=== PATIENT | female | born 1995 | race Two or more races ===

== ENCOUNTER 2019-10-03 15:01 | Emergency (ER) | payer SELFPAY ==
[~2019-10-03] VITALS: Ht 157.5 cm; Wt 82.6 kg
[2019-10-03 19:00] VITALS: BP 121/69
== END 2019-10-03 19:01 | disposition home or self-care (01) ==
LOC: ER 15:01
DX: J32.9 Chronic sinusitis, unspecified (principal)
CPT/HCPCS: 70450

== ENCOUNTER 2024-09-03 08:56 | Emergency (ER) | payer BC, MEDICAID ==
[~2024-09-03] VITALS: Ht 165.1 cm; Wt 95.7 kg
[2024-09-03 09:21] VITALS: BP 129/86; PULSE 77; RESP 17; TEMP 98.9; O2SAT 96
--- NOTE | 2024-09-03 10:23 | ED.PDOC ---
Musculoskeletal HPI Comments 29 year old presents for nail avulsion to the right thumb. Occurred 3 days ago while she was putting a shirt on No pain at this time. Denies numbness/tingling Chief Complaint: Upper Extremity Time Seen by MD: 09:12 Primary Care Provider: none Reviewed Notes: Nurses Notes, Medications, Allergies Allergies: Coded Allergies: NO KNOWN ALLERGIES (Unverified , 11/17/14) Information Source: Patient Mode of Arrival: Ambulatory Past Medical History PAST MEDICAL HISTORY: Denies Surgical History: Denies all surgeries COUNTY AUDITOR History: No Pertinent COUNTY AUDITOR History Social History Smoker: Non-Smoker Alcohol: Denies ETOH Use Drugs: Denies Drug Use Lives In: Home All Other Systems: Reviewed and Negative (per hpi) Physical Exam General Appearance: No Apparent Distress, Normal HEENT: Normal ENT Inspection, Pharynx Normal, TMs Normal Neck: Full Range of Motion, Non-Tender, Normal, Normal Inspection Respiratory: Chest Non-Tender, Lungs Clear, No Accessory Muscle Use, No Respiratory Distress, Normal Breath Sounds Cardiovascular: No Edema, No JVD, No Murmur, No Gallop, Normal Peripheral Pulses, Regular Rate/Rhythm Breast Exam: Deferred Gastrointestinal: No Organomegaly, Non Tender, No Pulsatile Mass, Normal Bowel Sounds, Soft Genitalia: Deferred Pelvic: Deferred Rectal: Deferred Extremities: No calf tenderness, Normal capillary refill, Normal inspection, Normal range of motion, Non-tender, No pedal edema Musculoskeletal : Apperance: Normal Neurologic: Alert, proof coins inspector II-XII nml as Tested, No Motor Deficits, Normal Affect, Normal Mood, No Sensory Deficits Cerebellar Function: Normal Reflexes: Normal Skin: Dry, Normal Color, Warm Lymphatic: No Adenopathy Was a procedure done? Was a procedure done?: Yes Sedation Sedation?: No Laceration Repair : Location thumb Length 1 Laceration Repair: Dermabond Informed consent obtained: Yes Risks, benefits, and alternati: Yes Images 1 - nail avusion. mild surround erythema to the nail bed. full rom. no pain to touch Differential Diagnosis EXT Differential Diagnosis: Sprain, Other X-Ray, Labs, Meds, VS Vital Signs Date Time Temp Pulse Resp B/P (MAP) Pulse Ox O2 Delivery O2 Flow Rate FiO2 09/03/24 09:21 98.9 77 17 129/86 (100) 96 98.9 09/03/24 09:21 77 17 96 Room Air 09/03/24 09:09 98.4 77 17 129/86 (100) 96 X-Ray, Labs, Meds, VS Comment Glued with Dermabond tolerated well. no complications wound check 24-48 hours. Time of 1ST Reevaluation: 10:23 Reevaluation 1ST: Improved Patient Education/Counseling: Diagnosis, Treatment Family Education/Counseling: Diagnosis, Treatment Departure 1 Departure Time of Disposition: 10:43 Impression: Primary Impression: Avulsion of nail Disposition: 01 HOME / SELF CARE / HOMELESS Condition: Stable e-Prescriptions Cephalexin Monohydrate (Cephalexin) 500 Mg Cap 1 CAP PO QID for 7 Days, #28 CAP 0 Refills Prov: ADY RAMOS NP 09/03/24 Discharged With: Self Critical Care Note Critical Care Time?: No Stability Stability form required: No Heart Score Heart Score: Heart Score Response (Comments) Value History N/A 0 EKG N/A 0 Age N/A 0 Risk Factors N/A 0 Troponin N/A 0 Total 0 ADY RAMOS NP Sep 03, 2024 10:23
[2024-09-03] MEDS ORDERED: CEPH500C PO (10:44)
== END 2024-09-03 11:00 | disposition home or self-care (01) ==
LOC: ER 08:56
DX: S61.101A Unspecified open wound of right thumb with damage to nail, initial encounter (principal); X58.XXXA Exposure to other specified factors, initial encounter; Y93.89 Activity, other specified; Y92.89 Other specified places as the place of occurrence of the external cause; Y99.8 Other external cause status
CPT/HCPCS: 11730; 12001

== ENCOUNTER → 2024-12-21 | Outpatient (CLI) | payer MEDICAID ==
[~2024-12-21] MED LIST: CEPH500C PO
[2024-12-21 10:19] LABS: Basophils # (auto) 0 10 ^3/uL (0-0.2); Basophils % (auto) 0.4 % (0.0-2.0); Eosinophils # (auto) 0.1 10 ^3/uL (0-0.8); Eosinophils % (auto) 0.7 % (0.0-7.0); Hematocrit 31.6 % (36.0-46.0); Hemoglobin 10.7 g/dL (12.2-16.2); Lymphocytes # (auto) 2.3 10 ^3/uL (0.4-5.4); Lymphocytes % (auto) 21.8 % (10.0-50.0); Mean Corpuscular Hemoglobin 29.3 pg (28.0-32.0); Mean Corpuscular Hgb Conc. 33.8 g/dL (32.0-36.0); Mean Corpuscular Volume 86.7 fL (80.0-100.0); Monocytes # (auto) 0.5 10 ^3/uL (0-1.3); Monocytes % (auto) 4.5 % (0.0-12.0); Neutrophils # (auto) 7.5 10 ^3/uL (1.6-8.6); Neutrophils % (auto) 72.6 % (37.0-80.0); Platelet Count (auto) 228 10^3/uL (140-450); Red Blood Cells 3.65 10^6/uL (4.0-5.20); Red Cell Distribution Width 15.2 % (11.8-14.3); White Blood Cell 10.4 10^3/uL (4.4-10.8)
== END | disposition home or self-care (01) ==
LOC: LAB 09:36
PROVIDERS: ATTEND Obstetrics & Gynecology
DX: O03.9 Complete or unspecified spontaneous abortion without complication (principal)
CPT/HCPCS: 36415; 84702; 85025

== ENCOUNTER 2024-12-22 17:35 | Emergency (ER) | payer MEDICAID ==
[~2024-12-22] VITALS: Ht 154.9 cm; Wt 92.2 kg
--- NOTE | 2024-12-22 18:33 | ED.PDOC ---
MOVING VAN DRIVER HPI Comments 29-year-old female who came to ER for issues. Patient is a , approximately 7 weeks . States she was seen by her OB yesterday, diagnosed that she was having a miscarriage, ultrasound was done revealing a yolk sac, and patient was given misoprostol in order for her to pass out the remains. Presenting with minimal abdominal pain and bleeding. Patient coming in wanting to see if there is any progression in her miscarriage. Chief Complaint: Time Seen by MD: 18:32 Reviewed Notes: Nurses Notes Allergies: Coded Allergies: NO KNOWN ALLERGIES (Unverified , 11/17/14) Home Meds Active Scripts Cephalexin Monohydrate (Cephalexin) 500 Mg Cap, 1 CAP PO QID for 7 Days, #28 CAP 0 Refills Prov:ADY RAMOS EKG MANAGER 09/03/24 Information Source: Patient Mode of Arrival: Ambulatory Timing: Hours Severity: Mild Onset Of Mass/Bleeding: Other (miscarriage) Sexual Activity: History of: Current Associated Signs and Symptoms: Vaginal Bleeding, Abdominal Pain Past Medical History PAST MEDICAL HISTORY: Denies Surgical History: Denies all surgeries CAREER EDUCATION TEACHER History: No Pertinent CAREER EDUCATION TEACHER History 3 Para 2 Social History Smoker: Non-Smoker Alcohol: Denies ETOH Use Drugs: Denies Drug Use Lives In: Home Constitutional: denies: chills, diaphoresis, fatigue, fever, malaise, sweats, weakness, others EENTM: denies: blurred vision, double vision, ear bleeding, ear discharge, ear drainage, ear pain, ear ringing, eye pain, eye redness, hearing loss, mouth pain, mouth swelling, nasal discharge, nose bleeding, nose congestion, nose pain, photophobia, tearing, throat pain, throat swelling, voice changes, others Respiratory: denies: cough, hemoptysis, orthopnea, SOB at rest, shortness of breath, SOB with excertion, stridor, wheezing, others Cardiovascular: denies: chest pain, dizzy spells, diaphoresis, Dyspnea on exertion, edema, irregular heart beat, left arm pain, lightheadedness, palpitations, PND, syncope, others Gastrointestinal: denies: abdomen distended, abdominal pain, blood streaked bowels, constipated, diarrhea, dysphagia, difficulty swallowing, hematemesis, melena, nausea, poor appetite, poor fluid intake, rectal bleeding, rectal pain, vomiting, others Genitourinary: reports: abnormal vagina bleeding; denies: burning, dyspareunia, dysuria, flank pain, frequency, hematuria, incontinence, pain, , vagina discharge, urgency, others Neurological: denies: dizziness, fainting, headache, left sided numbness, left sided weakness, numbness, paresthesia, pre-existing deficit, right sided numbness, right sided weakness, seizure, speech problems, tingling, tremors, weakness, others Musculoskeletal: denies: back pain, gout, joint pain, joint swelling, muscle pain, muscle stiffness, neck pain, others Integumetry: denies: bruises, change in color, change in hair/nails, dryness, laceration, lesions, lumps, rash, wounds, others Allergic/Immunocompromised: denies: Difficulty Healing, Frequent Infections, Hives, Itching, others Hematologic/Lymphatic: denies: anemia, blood clots, easy bleeding, easy bruising, swollen glands, others Endocrine: denies: excessive hunger, excessive sweating, excessive thirst, excessive urination, flushing, intolerance to cold, intolerance to heat, unexplained weight gain, unexplained weight loss, others Psychiatric: reports: anxiety; denies: bipolar disorder, depression, hopeless, panic disorder, schizophrenia, sleepless, suicidal, others Physical Exam General Appearance: No Apparent Distress, Normal HEENT: Normal ENT Inspection, Pharynx Normal, TMs Normal Neck: Full Range of Motion, Non-Tender, Normal, Normal Inspection Respiratory: Chest Non-Tender, Lungs Clear, No Accessory Muscle Use, No Respiratory Distress, Normal Breath Sounds Cardiovascular: No Edema, No JVD, No Murmur, No Gallop, Normal Peripheral Pulses, Regular Rate/Rhythm Breast Exam: Deferred Gastrointestinal: No Organomegaly, Non Tender, No Pulsatile Mass, Normal Bowel Sounds, Soft Genitalia: Deferred Pelvic: Deferred Rectal: Deferred Extremities: No calf tenderness, Normal capillary refill, Normal inspection, Normal range of motion, Non-tender, No pedal edema Musculoskeletal : Apperance: Normal Neurologic: Alert, linoleum floor installer II-XII nml as Tested, No Motor Deficits, Normal Affect, Normal Mood, No Sensory Deficits Cerebellar Function: Normal Reflexes: Normal Skin: Dry, Normal Color, Warm Lymphatic: No Adenopathy Was a procedure done? Was a procedure done?: No Differential Diagnosis (CAREER EDUCATION TEACHER) Vaginal Bleeding: - Incomplete, - Inevitable, - Missed, - Threatened X-Ray, Labs, Meds, VS Vital Signs Date Time Temp Pulse Resp B/P (MAP) Pulse Ox O2 Delivery O2 Flow Rate FiO2 12/22/24 21:40 98 Room Air* 0 21 12/22/24 21:40 98.0 87 18 126/80 (95) 99 98.0 12/22/24 18:11 98.3 105 18 126/81 (96) 99 98.3 Lab Test 12/22/24 18:45 12/22/24 18:00 Range/Units Beta HCG, Quantitative 1562.8 H 1.5-4.2 mIU/mL Urine Color Light-brown Yellow Urine Clarity Clear Clear Urine pH 6.5 5.0-9.0 Urine Specific [place] 1.004 1.001-1.035 Urine Protein Trace H Negative Urine Ketones Negative Negative Urine Blood 3+ H Negative /uL Urine Nitrite Negative Negative Urine Bilirubin Negative Negative Urine Urobilinogen Normal Negative mg/dL Urine Leukocyte Esterase 2+ Negative /uL Urine RBC 67 0 - 4 /hpf Urine Microscopic WBC 7 H 0-5 /HPF Urine Squamous Epithelial Cells Few <5 /hpf Urine Amorphous Crystals Few None Seen /hpf Urine Bacteria Few H None Seen /hpf Urine Glucose Normal Normal mg/dL PROCEDURE(s): OB4US - OB ULTRASOUND COMP LESS 14WKS REASON: 7 wks , vag bleeding ORDER NUMBER(s): [id number], ACCESSION NUMBER(s): [id number] OB EVALUATION, LESS THAN 14 WEEKS CLINICAL HISTORY: 7 wks , vag bleeding COMPARISON: None TECHNIQUE: Grayscale, color-flow Doppler, and spectral Doppler ultrasound of the pelvis is performed by transabdominal and transvaginal technique. FINDINGS: The uterus measures 13.1 x 4.8 x 6.9 cm. Mild heterogeneous endometrial thickening to approximately 1.2 cm. Irregular sac-like structure with possible yolk sac seen within the cervical region. No pole identified. The ovaries are not visualized. No free fluid identified in the cul-de-sac. IMPRESSION: Irregular sac-like structure with possible yolk sac seen within the lower uterine segment/ cervical canal. pole is not identified. Findings suggest failure/incomplete miscarriage. Recommend continued follow-up and correlation with serial beta HCG testing. Ovaries are not visualized. Time of 1ST Reevaluation: 18:28 Reevaluation 1ST: Unchanged Patient Education/Counseling: Diagnosis, Treatment Family Education/Counseling: No Family Present Departure 1 Departure Time of Disposition: 20:00 Impression: Primary Impression: Incomplete miscarriage Disposition: 01 HOME / SELF CARE / HOMELESS Condition: Stable Discharged With: Self Critical Care Note Critical Care Time?: No Stability Stability form required: No Heart Score Heart Score: Heart Score Response (Comments) Value History N/A 0 EKG N/A 0 Age N/A 0 Risk Factors N/A 0 Troponin N/A 0 Total 0 I personally scribed for TIFFANIE SALMON MD ([email or web address]) on 12/22/24 at 18:33. Electronically submitted by Tejas Jewell ([email or web address]). I personally scribed for TIFFANIE SALMON MD ([email or web address]) on 12/22/24 at 21:11. Electronically submitted by Tejas Jewell ([email or web address]). TIFFANIE SALMON MD Dec 22, 2024 18:33
[2024-12-22 18:59] LABS: Urine Amorphous Crystal FEW /hpf (None Seen); Urine Bacteria FEW /hpf (None Seen); Urine Blood 3+ /uL (Negative); Urine Clarity Clear (Clear); Urine Color Light-Brown (Yellow); Urine Protein, UAD TRACE (Negative); Urine Specific Gravity 1.004 (1.001-1.035); Urine Squamous Epithelial Cell FEW /hpf (<5); Urine Urobilinogen Normal (Negative); Urine WBC 7 /HPF (0-5); Urine pH 6.5 (5.0-9.0)
--- NOTE | 2024-12-22 20:39 | DVH ---
OB EVALUATION, LESS THAN 14 WEEKS CLINICAL HISTORY: 7 wks , vag bleeding COMPARISON: None TECHNIQUE: Grayscale, color-flow Doppler, and spectral Doppler ultrasound of the pelvis is performed by transabdominal and transvaginal technique. FINDINGS: The uterus measures 13.1 x 4.8 x 6.9 cm. Mild heterogeneous endometrial thickening to approximately 1 .2 cm. Irregular sac-like structure with possible yolk sac seen within the cervical region. No pole id entified. The ovaries are not visualized. No free fluid identified in the cul-de-sac. IMPRESSION: Irregular sac-like structure with possible yolk sac seen within the lower uterine segment/ cervical c anal. pole is not identified. Findings suggest failure/incomplete miscarriage. Recomm end continued follow-up and correlation with serial beta HCG testing. Ovaries are not visualized.
[2024-12-22 21:40] VITALS: BP 126/80; PULSE 87; RESP 18; TEMP 98; O2SAT 98
== END 2024-12-22 22:02 | disposition home or self-care (01) ==
LOC: ER 17:35
DX: O20.0 Threatened abortion (principal); Z79.899 Other long term (current) drug therapy
CPT/HCPCS: 36415; 76801; 76817; 81001; 84702; 86901

== ENCOUNTER 2024-12-27 07:08 | Emergency (ER) | payer MEDICAID ==
[~2024-12-27] VITALS: Ht 154.9 cm; Wt 94.4 kg
--- NOTE | 2024-12-27 07:35 | ED.PDOC ---
RATE INSERTER HPI Comments 29 y/o F, presents to the ED for CC of vaginal bleeding. Patient states, that she had an incomplete miscarriage on Tuesday (12/18/24) and began to experience heavy bleeding with clots yesterday (12/27/24). Patient relays, that she was seen at [facility] on Tuesday (01/21/25); and was told to have reaminates of previous IUP. Patient comments, that she want to see if tissue has since passed. Patient denies any current pain. No other symptoms or modifying factors present at this time. Chief Complaint: Vaginal Bleed Time Seen by MD: 07:00 Reviewed Notes: Nurses Notes, Medications, Allergies Allergies: Coded Allergies: NO KNOWN ALLERGIES (Unverified , 11/17/14) Home Meds Active Scripts Cephalexin Monohydrate (Cephalexin) 500 Mg Cap, 1 CAP PO QID for 7 Days, #28 CAP 0 Refills Prov:ADY RAMOS Rambo NURSE SPECIAL 09/03/24 Information Source: Patient Mode of Arrival: Ambulatory Timing: Days Prehospital treatment: None Severity: Moderate Vaginal Discharge: None Vaginal Lesions: None Vaginal Mass: None Onset Of Mass/Bleeding: Spontaneous Sexual Activity: Neither Last Consensual [place]: Unknown Control: None Blood Type: Unknown Symptoms of Possible : None Associated Signs and Symptoms: Vaginal Bleeding Past Medical History PAST MEDICAL HISTORY: Denies Surgical History: Denies all surgeries WARNING COORDINATION METEOROLOGIST History: No Pertinent WARNING COORDINATION METEOROLOGIST History Social History Smoker: Non-Smoker Alcohol: Denies ETOH Use Drugs: Denies Drug Use Lives In: Home Constitutional: denies: chills, diaphoresis, fatigue, fever, malaise, sweats, weakness, others EENTM: denies: blurred vision, double vision, ear bleeding, ear discharge, ear drainage, ear pain, ear ringing, eye pain, eye redness, hearing loss, mouth pain, mouth swelling, nasal discharge, nose bleeding, nose congestion, nose pain, photophobia, tearing, throat pain, throat swelling, voice changes, others Respiratory: denies: cough, hemoptysis, orthopnea, SOB at rest, shortness of breath, SOB with excertion, stridor, wheezing, others Cardiovascular: denies: chest pain, dizzy spells, diaphoresis, Dyspnea on exertion, edema, irregular heart beat, left arm pain, lightheadedness, palpitations, PND, syncope, others Gastrointestinal: denies: abdomen distended, abdominal pain, blood streaked bowels, constipated, diarrhea, dysphagia, difficulty swallowing, hematemesis, melena, nausea, poor appetite, poor fluid intake, rectal bleeding, rectal pain, vomiting, others Genitourinary: reports: abnormal vagina bleeding; denies: burning, dyspareunia, dysuria, flank pain, frequency, hematuria, incontinence, pain, , vagina discharge, urgency, others Neurological: denies: dizziness, fainting, headache, left sided numbness, left sided weakness, numbness, paresthesia, pre-existing deficit, right sided numbness, right sided weakness, seizure, speech problems, tingling, tremors, weakness, others Musculoskeletal: denies: back pain, gout, joint pain, joint swelling, muscle pain, muscle stiffness, neck pain, others Integumetry: denies: bruises, change in color, change in hair/nails, dryness, laceration, lesions, lumps, rash, wounds, others Allergic/Immunocompromised: denies: Difficulty Healing, Frequent Infections, Hives, Itching, others Hematologic/Lymphatic: denies: anemia, blood clots, easy bleeding, easy bruising, swollen glands, others Endocrine: denies: excessive hunger, excessive sweating, excessive thirst, excessive urination, flushing, intolerance to cold, intolerance to heat, unexplained weight gain, unexplained weight loss, others Psychiatric: denies: anxiety, bipolar disorder, depression, hopeless, panic disorder, schizophrenia, sleepless, suicidal, others All Other Systems: Reviewed and Negative Physical Exam General Appearance: No Apparent Distress HEENT: Normal ENT Inspection, Pharynx Normal, TMs Normal Neck: Full Range of Motion, Non-Tender, Normal, Normal Inspection Respiratory: Chest Non-Tender, Lungs Clear, No Accessory Muscle Use, No Respiratory Distress, Normal Breath Sounds Cardiovascular: No Edema, No JVD, No Murmur, No Gallop, Normal Peripheral Pulses, Regular Rate/Rhythm Breast Exam: Deferred Gastrointestinal: No Organomegaly, Non Tender, No Pulsatile Mass, Normal Bowel Sounds, Soft Genitalia: Deferred Pelvic: Deferred Rectal: Deferred Extremities: No calf tenderness, Normal capillary refill, Normal inspection, Normal range of motion, Non-tender, No pedal edema Musculoskeletal : Apperance: Normal Neurologic: Alert, public works manager II-XII nml as Tested, No Motor Deficits, Normal Affect, Normal Mood, No Sensory Deficits Cerebellar Function: Normal Reflexes: Normal Skin: Dry, Normal Color, Warm Lymphatic: No Adenopathy Was a procedure done? Was a procedure done?: No Differential Diagnosis (WARNING COORDINATION METEOROLOGIST) Vaginal Bleeding: - Incomplete X-Ray, Labs, Meds, VS Vital Signs Date Time Temp Pulse Resp B/P (MAP) Pulse Ox O2 Delivery O2 Flow Rate FiO2 12/27/24 08:25 84 18 100 Room Air* 0 21 12/27/24 08:22 98.4 84 18 118/59 (78) 100 98.4 12/27/24 07:18 99.1 103 16 139/79 (99) 99 99.1 Lab Test 12/27/24 08:29 12/27/24 07:30 Range/Units Urine Color Light-yellow Yellow Urine Clarity Clear Clear Urine pH 6.0 5.0-9.0 Urine Specific [place] 1.020 1.001-1.035 Urine Protein Trace H Negative Urine Ketones Negative Negative Urine Blood 3+ H Negative /uL Urine Nitrite Negative Negative Urine Bilirubin Negative Negative Urine Urobilinogen Normal Negative mg/dL Urine Leukocyte Esterase Negative Negative /uL Urine RBC 88 0 - 4 /hpf Urine Microscopic WBC 3 0-5 /HPF Urine Squamous Epithelial Cells Few <5 /hpf Urine Bacteria Few H None Seen /hpf Urine Mucus Few None Seen Urine Glucose Normal Normal mg/dL Beta HCG, Quantitative 559.9 H 1.5-4.2 mIU/mL The urine test is negative for infection The quantitative is 559.9 The pelvic ultrasound shows: IMPRESSION: Cystic structure is again visualized in the lower uterine segment/ cervical region measuring 3.1 cm. Recommend correlation with beta HCG and short-term follow-up pelvic ultrasound. At this time, the patient is being discharged and will follow up with the primary care doctor The quantitative hCG is trending down significantly so we feel the patient can be discharged with a follow up ultrasound The patient will return to the emergency department's condition worsens Images Reviewed?: Images reviewed and evaluated by me Time of 1ST Reevaluation: 07:30 Reevaluation 1ST: Unchanged Patient Education/Counseling: Diagnosis, Treatment, Prognosis, Need For Follow Up Family Education/Counseling: No Family Present Departure 1 Departure Time of Disposition: 09:33 Impression: Primary Impression: Incomplete miscarriage Disposition: HOME / SELF CARE / HOMELESS Condition: Fair Discharged With: Self Critical Care Note Critical Care Time?: No Stability Stability form required: No Heart Score Heart Score: Heart Score Response (Comments) Value History N/A 0 EKG N/A 0 Age N/A 0 Risk Factors N/A 0 Troponin N/A 0 Total 0 I personally scribed for SWEETIE AVILA MD ([email or web address]) on 12/27/24 at 07:35. Electronically submitted by Christel Mobley ([email or web address]). SWEETIE AVILA MD December 27, 2024 07:35
[2024-12-27 08:22] VITALS: BP 118/59; TEMP 98.4
[2024-12-27 08:25] VITALS: PULSE 84; RESP 18; O2SAT 100
[2024-12-27 08:46] LABS: Urine Bacteria FEW /hpf (None Seen); Urine Blood 3+ /uL (Negative); Urine Clarity Clear (Clear); Urine Color Light-Yellow (Yellow); Urine Mucus FEW (None Seen); Urine Protein, UAD TRACE (Negative); Urine Squamous Epithelial Cell FEW /hpf (<5); Urine Urobilinogen Normal (Negative); Urine WBC 3 /HPF (0-5)
--- NOTE | 2024-12-27 08:51 | DVH ---
OB ULTRASOUND <14 WEEKS: HISTORY: PAIN TECHNIQUE: Multiple real-time grayscale sonographic images of the pelvis with duplex Doppler color f low, spectral and M-mode analysis. TRANSDUCERS: Transabdominal and transvaginal. FINDINGS: The uterus measures 11.3 x 7.6 x 5.2 cm. Heterogeneous uterus. Cystic structure is again visualized i n the lower uterine segment/ cervical region measuring 3.1 cm. The cervix not well visualized. Right ovary measures 3.0 x 2.0 x 2.5 cm with normal Doppler color flow Left ovary is not well visualized due to obscuration from bowel gas. No intrauterine is visualized. IMPRESSION: Cystic structure is again visualized in the lower uterine segment/ cervical region measuring 3.1 cm. Recommend correlation with beta HCG and short-term follow-up pelvic ultrasound.
== END 2024-12-27 11:13 | disposition home or self-care (01) ==
LOC: ER 07:08
DX: O03.4 Incomplete spontaneous abortion without complication (principal); O02.1 Missed abortion; Z79.899 Other long term (current) drug therapy
CPT/HCPCS: 36415; 76801; 76817; 81001; 84702

== ENCOUNTER → 2024-12-28 | Outpatient (CLI) | payer MEDICAID ==
[2024-12-28 14:25] LABS: Basophils # (auto) 0.1 10 ^3/uL (0-0.2); Basophils % (auto) 0.7 % (0.0-2.0); Eosinophils # (auto) 0.1 10 ^3/uL (0-0.8); Eosinophils % (auto) 1.1 % (0.0-7.0); Hemoglobin 8.7 g/dL (12.2-16.2); Lymphocytes # (auto) 2.8 10 ^3/uL (0.4-5.4); Lymphocytes % (auto) 36.7 % (10.0-50.0); Mean Corpuscular Hemoglobin 29.1 pg (28.0-32.0); Mean Corpuscular Hgb Conc. 33.4 g/dL (32.0-36.0); Mean Corpuscular Volume 87.3 fL (80.0-100.0); Monocytes # (auto) 0.4 10 ^3/uL (0-1.3); Monocytes % (auto) 5.2 % (0.0-12.0); Neutrophils # (auto) 4.2 10 ^3/uL (1.6-8.6); Neutrophils % (auto) 56.3 % (37.0-80.0); Platelet Count (auto) 259 10^3/uL (140-450); Red Blood Cells 2.98 10^6/uL (4.0-5.20); Red Cell Distribution Width 15.2 % (11.8-14.3); White Blood Cell 7.5 10^3/uL (4.4-10.8)
== END | disposition home or self-care (01) ==
LOC: LAB 14:05
PROVIDERS: ATTEND Obstetrics & Gynecology
DX: O03.9 Complete or unspecified spontaneous abortion without complication (principal)
CPT/HCPCS: 36415; 84702; 85025

== ENCOUNTER → 2024-12-31 | Outpatient (CLI) | payer MEDICAID ==
[2024-12-31 09:22] LABS: Basophils # (auto) 0 10 ^3/uL (0-0.2); Basophils % (auto) 0.7 % (0.0-2.0); Eosinophils # (auto) 0.1 10 ^3/uL (0-0.8); Eosinophils % (auto) 1.2 % (0.0-7.0); Hematocrit 28.3 % (36.0-46.0); Hemoglobin 9.2 g/dL (12.2-16.2); Lymphocytes # (auto) 2.2 10 ^3/uL (0.4-5.4); Lymphocytes % (auto) 31.9 % (10.0-50.0); Mean Corpuscular Hemoglobin 28.9 pg (28.0-32.0); Mean Corpuscular Hgb Conc. 32.6 g/dL (32.0-36.0); Mean Corpuscular Volume 88.8 fL (80.0-100.0); Monocytes # (auto) 0.3 10 ^3/uL (0-1.3); Monocytes % (auto) 4.5 % (0.0-12.0); Neutrophils # (auto) 4.2 10 ^3/uL (1.6-8.6); Neutrophils % (auto) 61.7 % (37.0-80.0); Platelet Count (auto) 284 10^3/uL (140-450); Red Blood Cells 3.19 10^6/uL (4.0-5.20); Red Cell Distribution Width 15.5 % (11.8-14.3); White Blood Cell 6.8 10^3/uL (4.4-10.8)
== END | disposition home or self-care (01) ==
LOC: LAB 09:00
PROVIDERS: ATTEND Obstetrics & Gynecology
DX: O03.9 Complete or unspecified spontaneous abortion without complication (principal)
CPT/HCPCS: 36415; 84702; 85025

== ENCOUNTER 2025-01-13 15:04 | Emergency (ER) | payer MEDICAID ==
[~2025-01-13] VITALS: Ht 154.9 cm; Wt 96.8 kg
[2025-01-13 15:15] VITALS: TEMP 98.9
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
[2025-01-13 16:42] VITALS: BP 132/70; PULSE 100; RESP 18; O2SAT 99
== END 2025-01-13 16:49 | disposition home or self-care (01) ==
LOC: ER 15:07
DX: S13.8XXA Sprain of joints and ligaments of other parts of neck, initial encounter (principal); S13.4XXA Sprain of ligaments of cervical spine, initial encounter; V49.40XA Driver injured in collision with unspecified motor vehicles in traffic accident, initial encounter; Y93.I9 Activity, other involving external motion; Y92.488 Other paved roadways as the place of occurrence of the external cause; Y99.8 Other external cause status

== ENCOUNTER → 2025-01-23 | Outpatient (CLI) | payer MEDICAID | END | disposition home or self-care (01) | LOC: LAB 13:10 | PROVIDERS: ATTEND Obstetrics & Gynecology | DX: O03.9 Complete or unspecified spontaneous abortion without complication (principal) | CPT/HCPCS: 36415; 84702 ==